=== PATIENT | male | born 1955 | race Caucasian/White ===

== ENCOUNTER → 2016-09-22 | Outpatient (CLI) | payer OTHER ==
[~2016-09-22] MED LIST: AMBIEN CR12.5 MG PO; ASPIR 8181 MG PO; CATAPRES 0.1MG0.1 MG PO; COZAAR100 MG PO; DILTIAZEM 24HR360 MG PO; HYDRALAZINE HCL25 MG PO; HYDROCHLOROTHIA25 MG PO; K-DUR TAB 10 M10 MEQ PO; KETOROLAC TROME10 MG PO; LASIX40 MG PO; METOPROLOL SUC100 MG PO; MOVANTIK25 MG PO; NORCO 7.5-3251 EACH PO; NORVASC 5 MG TAB5 MG PO; PHENERGAN 25 MG25 M1 PO; TOUJEO SQ; VICTOZA 3-0.6 MG/0.1 INJ; ZANAFLEX4 M1 PO; ZOFRAN 8 MG TAB8 MG PO
== END ==
LOC: EMI 14:55
DX: I63.9 Cerebral infarction, unspecified (principal)
CPT/HCPCS: 70551